=== PATIENT | male | born 1950 | race Asian ===

== ENCOUNTER 2017-03-09 13:40 | Emergency (ER) | payer OTHER, MEDICARE ==
[2017-03-09] MEDS: IV NORMAL SALINE 1000ML BAG 1,000 ML IV (15:04)
[2017-03-09 15:07] LABS: ADD MAN DIFF? NO
[2017-03-09 15:11] LABS: BASO % 0 % (0-3); EOS % 3 % (0-3); HEMATOCRIT 46.3 % (39.0-53.0); HEMOGLOBIN 15.5 g/dL (13.0-17.5); LYMPH # 1.2 x10^3/uL (1.0-4.8); LYMPH % 18 % (24-48); MEAN CORPUSCULAR HEMOGLOBIN 31 pg (25-35); MEAN CORPUSCULAR HGB CONC 34 g/dL (31-37); MEAN CORPUSCULAR VOLUME 93 fL (79-100); MONO % 7 % (0-9); NEUT % 71 % (31-73); PLATELET COUNT 188 x10^3/uL (140-400); RED BLOOD COUNT 4.98 x10^6/uL (4.30-5.70); RED CELL DISTRIBUTION WIDTH 13.1 % (11.5-14.5); WHITE BLOOD COUNT 6.8 x10^3/uL (4.0-11.0)
[2017-03-09 15:23] LABS: ANION GAP 10 (6-14); BLOOD UREA NITROGEN 18 mg/dL (8-26); BUN/CREATININE RATIO 18 (6-20); CALCIUM 8.6 mg/dL (8.5-10.1); CARBON DIOXIDE 28 mmol/L (21-32); CHLORIDE 104 mmol/L (98-107); GFR 74.8; GLUCOSE 100 mg/dL (70-99); INR 0.9 (0.8-1.1); PARTIAL THROMBOPLASTIN TIME 33 SEC (24-38); POTASSIUM 3.5 mmol/L (3.5-5.1); PROTHROMBIN TIME PATIENT 11.2 SEC (11.7-14.0); SODIUM 142 mmol/L (136-145)
[2017-03-09 15:29] LABS: ALK PHOS 70 U/L (46-116); ALT (SGPT) 30 U/L (16-63); AST (SGOT) 27 U/L (15-37); TOTAL BILIRUBIN 0.6 mg/dL (0.2-1.0); TOTAL PROTEIN 7.9 g/dL (6.4-8.2)
[2017-03-09] MEDS ORDERED: CONTRAST GIVEN MC (15:30)
[2017-03-09] MEDS: IOHEXOL 300 MG/ML 100ML VIAL. IV (15:38)
== END 2017-03-09 17:22 | disposition home or self-care (01) ==
LOC: ER 13:40
DX: K92.1 Melena (principal); K52.9 Noninfective gastroenteritis and colitis, unspecified; E78.00 Pure hypercholesterolemia, unspecified; Z79.82 Long term (current) use of aspirin
CPT/HCPCS: 36415; 74177; 80053; 83690; 85025; 85610; 85730; 96360; 96361; 99285-25; J7030; Q9967

== ENCOUNTER 2018-01-09 10:24 | Inpatient (IN) | payer OTHER ==
[~2018-01-09] VITALS: Ht 167.6 cm; Wt 64.4 kg
[~2018-01-09 10:24] MED LIST: CIPR500T94 PO; HYDR-971 PO; METR250T11 PO; OMEG1CAP38 PO; ONDA4TAB12 PO
[2018-01-09] MEDS ORDERED: ASPIRIN 325 MG TABLET PO ONE (11:00)
--- NOTE | 2018-01-09 11:10 | PHYS DOC ---
Past Medical History Past Medical History: High Cholesterol Past Surgical History: No Surgical History Alcohol Use: Occasionally Drug Use: None Adult General Chief Complaint Chief Complaint: CHEST PAIN HPI HPI Patient is a 67 year old male with history of high cholesterol who presents today with 7 out of 10 cramping left-sided chest pain intermittent in nature and nonradiating worse on deep breaths that began 3 weeks ago. Patient denies taking anything to relieve his pain. He states he sometimes gets short of air on exertion. PCP Dr. Cordero Review of Systems Review of Systems Constitutional: Denies fever or chills [] Eyes: Denies change in visual acuity, redness, or eye pain [] HENT: Denies nasal congestion or sore throat [] Respiratory: Denies cough or shortness of breath [] Cardiovascular: Reports left-sided chest pain GI: Denies abdominal pain, nausea, vomiting, bloody stools or diarrhea [] : Denies dysuria or hematuria [] Musculoskeletal: Denies back pain or joint pain [] Integument: Denies rash or skin lesions [] Neurologic: Denies headache, focal weakness or sensory changes [] All other systems were reviewed and found to be within normal limits, except as documented in this note. Current Medications Current Medications Current Medications Medications (Trade) Dose Ordered Sig/Mary Start Time Stop Time Status Last Admin Dose Admin Acetaminophen (Tylenol) 650 mg PRN Q4HRS PRN 01/09/18 15:30 01/10/18 15:29 Aspirin (Douglas Aspirin) 325 mg 1X ONCE 01/09/18 11:00 01/09/18 11:01 DC 01/09/18 14:50 325 MG Morphine Sulfate (Morphine Sulfate) 4 mg PRN Q2HR PRN 01/09/18 15:30 01/10/18 15:29 Nitroglycerin (Nitrostat) 0.4 mg PRN Q5MIN PRN 01/09/18 15:30 01/10/18 15:29 Ondansetron HCl (Zofran) 4 mg PRN Q8HRS PRN 01/09/18 15:30 01/10/18 15:29 Allergies Allergies Allergies Coded Allergies Type Severity Reaction Last Updated Verified No Known Drug Allergies 02/13/13 No Physical Exam Physical Exam Constitutional: Well developed, well nourished, no acute distress, non-toxic appearance. [] HENT: Normocephalic, atraumatic, bilateral external ears normal, oropharynx moist, no oral exudates, nose normal. [] Eyes: PERRLA, EOMI, conjunctiva normal, no discharge. [] Neck: Normal range of motion, no tenderness, supple, no stridor. [] Cardiovascular:Heart rate regular rhythm, no murmur [] Lungs & Thorax: Bilateral breath sounds clear to auscultation [] Abdomen: Bowel sounds normal, soft, no tenderness, no masses, no pulsatile masses. [] Skin: Warm, dry, no erythema, no rash. [] Back: No tenderness, no CVA tenderness. [] Extremities: No tenderness, no cyanosis, no clubbing, ROM intact, no edema. [] Neurologic: Alert and oriented X 3, normal motor function, normal sensory function, no focal deficits noted. [] Psychologic: Affect normal, judgement normal, mood normal. [] Current Patient Data Vital Signs Vital Signs Date Time Temp Pulse Resp B/P (MAP) Pulse Ox O2 Delivery O2 Flow Rate FiO2 01/09/18 10:39 97.7 69 18 156/74 (101) 99 Room Air 97.7 Lab Values Laboratory Tests Test 01/09/18 13:50 01/09/18 13:55 Urine Collection Type Clean catch Urine Color Yellow Urine Clarity Clear Urine pH 7.5 Urine Specific [place] 1.010 Urine Protein Negative mg/dL (NEG-TRACE) Urine Glucose (UA) Negative mg/dL (NEG) Urine Ketones (Stick) Negative mg/dL (NEG) Urine Blood Negative (NEG) Urine Nitrite Negative (NEG) Urine Bilirubin Negative (NEG) Urine Urobilinogen Dipstick 0.2 mg/dL (0.2 mg/dL) Urine Leukocyte Esterase Negative (NEG) Urine RBC 0 /HPF (0-2) Urine WBC 0 /HPF (0-4) Urine Bacteria 0 /HPF (0-FEW) Urine Opiates Screen Neg (NEG) Urine Methadone Screen Neg (NEG) Urine Barbiturates Neg (NEG) Urine Phencyclidine Screen Neg (NEG) Urine Amphetamine/Methamphetamine Neg (NEG) Urine Benzodiazepines Screen Neg (NEG) Urine Cocaine Screen Neg (NEG) Urine Cannabinoids Screen Neg (NEG) Urine Ethyl Alcohol Neg (NEG) White Blood Count 4.2 x10^3/uL (4.0-11.0) Red Blood Count 4.71 x10^6/uL (4.30-5.70) Hemoglobin 15.1 g/dL (13.0-17.5) Hematocrit 43.6 % (39.0-53.0) Mean Corpuscular Volume 93 fL (79-100) Mean Corpuscular Hemoglobin 32 pg (25-35) Mean Corpuscular Hemoglobin Concent 35 g/dL (31-37) Red Cell Distribution Width 12.8 % (11.5-14.5) Platelet Count 183 x10^3/uL (140-400) Neutrophils (%) (Auto) 61 % (31-73) Lymphocytes (%) (Auto) 26 % (24-48) Monocytes (%) (Auto) 9 % (0-9) Eosinophils (%) (Auto) 4 % (0-3) H Basophils (%) (Auto) 1 % (0-3) Neutrophils # (Auto) 2.6 x10^3uL (1.8-7.7) Lymphocytes # (Auto) 1.1 x10^3/uL (1.0-4.8) Monocytes # (Auto) 0.4 x10^3/uL (0.0-1.1) Eosinophils # (Auto) 0.2 x10^3/uL (0.0-0.7) Basophils # (Auto) 0.0 x10^3/uL (0.0-0.2) D-Dimer (Rozina) < 0.27 ug/mlFEU Sodium Level 143 mmol/L (136-145) Potassium Level 3.7 mmol/L (3.5-5.1) Chloride Level 104 mmol/L (98-107) Carbon Dioxide Level 33 mmol/L (21-32) H Anion Gap 6 (6-14) Blood Urea Nitrogen 16 mg/dL (8-26) Creatinine 1.0 mg/dL (0.7-1.3) Estimated GFR (Cockcroft-Gault) 74.5 BUN/Creatinine Ratio 16 (6-20) Glucose Level 98 mg/dL (70-99) Calcium Level 9.0 mg/dL (8.5-10.1) Magnesium Level 2.4 mg/dL (1.8-2.4) Total Bilirubin 0.5 mg/dL (0.2-1.0) Aspartate Amino Transferase (AST) 29 U/L (15-37) Alanine Aminotransferase (ALT) 29 U/L (16-63) Alkaline Phosphatase 60 U/L (46-116) Troponin I Quantitative < 0.017 ng/mL (0.000-0.055) HR-Byq-V-Type Natriuretic Peptide 33 pg/mL (0-124) Total Protein 7.6 g/dL (6.4-8.2) Albumin 3.7 g/dL (3.4-5.0) Albumin/Globulin Ratio 0.9 (1.0-1.7) L Thyroid Stimulating Hormone (TSH) 1.865 uIU/mL (0.358-3.74) Laboratory Tests 01/09/18 13:55 Laboratory Tests 01/09/18 13:55 EKG EKG [] Interpretation Time: 10:[address] He sinus rhythm heart rate 64 no STEMI Radiology/Procedures Radiology/Procedures []PROCEDURE: PORTABLE CHEST 1V PORTABLE CHEST 1V History: chest pain Comparison: February 13, 2013 Findings: Single view of the chest is submitted. There is no infiltrate, pneumothorax, or effusion. The pericardial cardiac silhouette is within normal limits in size. Impression: 1. There is no evidence of acute cardiopulmonary disease. Electronically signed by: Sue Haley MD (01/09/2018 12:01 PM) [id number] DICTATED and SIGNED BY: SUE HALEY MD DATE: 01/09/18 1200 Course & Med Decision Making Course & Med Decision Making Pertinent Labs and Imaging studies reviewed. (See chart for details) This is a 67-year-old male patient presented to the ED today with left-sided chest pain for 3 weeks. Patient also complaining of intermittent episodes of shortness of breath. Patient's labs, EKG, troponin and d-dimer were negative for any acute findings. Chest x-ray is negative. Consulted with Logan LLANOS for dye weigher helper who will follow-up with patient. Consulted with Dr. Chua who accepted patient for admission. Dragon Disclaimer Dragon Disclaimer This electronic medical record was generated, in whole or in part, using a voice recognition dictation system. Departure Departure Impression: Primary Impression: Chest pain Disposition: ADMITTED INPATIENT Condition: STABLE Referrals: JESSICA CORDERO MD (PCP) Problem Qualifiers Primary Impression: Chest pain Chest pain type: unspecified Qualified Codes: R07.9 - Chest pain, unspecified AURELIOMANPREET SANCHEZ METAL BALER Jan 09, 2018 11:10
--- NOTE | 2018-01-09 11:13 | EKG ---
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
--- NOTE | 2018-01-09 12:05 | RAD ---
PORTABLE CHEST 1V History: chest pain Comparison: February 13, 2013 Findings: Single view of the chest is submitted. There is no infiltrate, pneumothorax, or effusion. The pericardial cardiac silhouette is within normal limits in size. Impression: 1. There is no evidence of acute cardiopulmonary disease. Electronically signed by: Ken David MD (01/09/2018 12:01 PM) [id number]
[2018-01-09 14:04] LABS: BASO % 1 % (0-3); EOS # 0.2 x10^3/uL (0.0-0.7); EOS % 4 % (0-3); HEMATOCRIT 43.6 % (39.0-53.0); HEMOGLOBIN 15.1 g/dL (13.0-17.5); LYMPH # 1.1 x10^3/uL (1.0-4.8); LYMPH % 26 % (24-48); MEAN CORPUSCULAR HEMOGLOBIN 32 pg (25-35); MEAN CORPUSCULAR HGB CONC 35 g/dL (31-37); MEAN CORPUSCULAR VOLUME 93 fL (79-100); MONO # 0.4 x10^3/uL (0.0-1.1); MONO % 9 % (0-9); NEUT # 2.6 x10^3uL (1.8-7.7); NEUT % 61 % (31-73); PLATELET COUNT 183 x10^3/uL (140-400); RED BLOOD COUNT 4.71 x10^6/uL (4.30-5.70); RED CELL DISTRIBUTION WIDTH 12.8 % (11.5-14.5); WHITE BLOOD COUNT 4.2 x10^3/uL (4.0-11.0)
[2018-01-09 14:14] LABS: BILIRUBIN,URINE NEGATIVE (NEG); CLARITY,URINE CLEAR; COLOR,URINE YELLOW; NITRITE,URINE NEGATIVE (NEG); PH,URINE 7.5; PROTEIN,URINE NEGATIVE (NEG-TRACE); UROBILINOGEN,URINE 0.2 mg/dL (0.2 mg/dL)
[2018-01-09 14:25] LABS: BARBITURATES NEG (NEG); BENZODIAZEPINES NEG (NEG); CANNABINOIDS NEG (NEG); COCAINE NEG (NEG); METHADONE NEG (NEG); OPIATES NEG (NEG); PHENCYCLIDINE NEG (NEG)
[2018-01-09 14:25] LABS: GFR 74.5; POTASSIUM 3.7 mmol/L (3.5-5.1)
[2018-01-09 14:26] LABS: AMPHETAMINE/METHAMPHETAMINE NEG (NEG); BACTERIA,URINE 0 /HPF (0-FEW); RBC,URINE 0 /HPF (0-2); WBC,URINE 0 /HPF (0-4)
[2018-01-09 14:29] LABS: ALBUMIN 3.7 g/dL (3.4-5.0); ALBUMIN/GLOBULIN RATIO 0.9 (1.0-1.7); MAGNESIUM 2.4 mg/dL (1.8-2.4); TOTAL BILIRUBIN 0.5 mg/dL (0.2-1.0); TOTAL PROTEIN 7.6 g/dL (6.4-8.2)
[2018-01-09] MEDS ORDERED: ONDANSETRON PF 4 MG/2 ML VIAL. IV PRN (15:30)
[2018-01-09] MEDS ORDERED: NITROGLYCERIN SUBLINGUAL 0.4 MG BOTTLE OF 25. SL PRN (15:30)
[2018-01-09] MEDS ORDERED: MORPHINE SULFATE 4 MG/ML VIAL. IV PRN (15:30)
[2018-01-09] MEDS ORDERED: ACETAMINOPHEN 325 MG TABLET. PO PRN (15:30)
--- NOTE | 2018-01-09 15:30 | PDOC1 ---
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 Patient denies taking anything to relieve his pain. He states he sometimes gets short of air on exertion. IN ER Troponin i neg Past Medical History Past Medical History Past Medical History: High Cholesterol Past Surgical History: No Surgical History Alcohol Use: Occasionally Drug Use: None from [place] lived here 34 yrs nonsmoker fhx high cholesterol Cardiovascular: Hyperlipidemia Infectious disease: No pertinent hx ENT: No pertinent hx Renal/: No pertinent hx Family History Family History: Hypertension Family History: Parent Social History Smoke: No ALCOHOL: none Drugs: None Current Medications Current Medications Current Medications Aspirin (Douglas Aspirin) 325 mg 1X ONCE PO Last administered on 01/09/18at 14: 50; Start 01/09/18 at 11:00; Stop 01/09/18 at 11:01; Status DC Ondansetron HCl (Zofran) 4 mg PRN Q8HRS PRN IV NAUSEA/VOMITING; Start at 15:30; Stop 01/10/18 at 15:29 Morphine Sulfate (Morphine Sulfate) 4 mg PRN Q2HR PRN IV PAIN; Start 01/09/18 at 15:30; Stop 01/10/18 at 15:29 Acetaminophen (Tylenol) 650 mg PRN Q4HRS PRN PO FEVER; Start 01/09/18 at 15:30 ; Stop 01/10/18 at 15:29 Nitroglycerin (Nitrostat) 0.4 mg PRN Q5MIN PRN SL CHEST PAIN; Start 01/09/18 at 15:30; Stop 01/10/18 at 15:29 Active Scripts Active [place] 5-325 Tablet (Acetaminophen/Hydrocodone Bitart) 1 Each Tablet 1-2 Tab PO Q4-6HRS Ondansetron Odt (Ondansetron) 4 Mg Tab.rapdis 1 Tab PO PRN Q6-8HRS Cipro (Ciprofloxacin Hcl) 500 Mg Tablet 1 Tab PO BID Metronidazole 250 Mg Tablet 1 Tab PO TID Reported [place] 3 Fish Oil Softgel ([place]-3 Fatty Acids/Fish Oil) 1 Each Capsule. 1 Each PO Allergies Allergies: Coded Allergies: No Known Drug Allergies (Unverified , 02/13/13) ROS Review of System Review of Systems Review of Systems Constitutional: Denies fever or chills [] Eyes: Denies change in visual acuity, redness, or eye pain [] HENT: Denies nasal congestion or sore throat [] Respiratory: Denies cough or shortness of breath [] Cardiovascular: Reports left-sided chest pain no radiation GI: Denies abdominal pain, nausea, vomiting, bloody stools or diarrhea [] : Denies dysuria or hematuria [] Musculoskeletal: Denies back pain or joint pain [] Integument: Denies rash or skin lesions [] Neurologic: Denies headache, focal weakness or sensory changes [] 14 pt systems were reviewed and found to be within normal limits, except as documented . General: No: Chills, Night Sweats, Fatigue, Malaise, Appetite, Other Cardiovascular: yes Chest Pain Physical Exam Physical Exam Physical Exam Physical Exam Constitutional: Well developed, well nourished, no acute distress, non-toxic appearance. [] HENT: Normocephalic, atraumatic, bilateral external ears normal, oropharynx moist, no oral exudates, nose normal. [] Eyes: PERRLA, EOMI, conjunctiva normal, no discharge. [] Neck: Normal range of motion, no tenderness, supple, no stridor. [] Cardiovascular:Heart rate regular rhythm, no murmur [] Lungs & Thorax: Bilateral breath sounds clear to auscultation [] Abdomen: Bowel sounds normal, soft, no tenderness, no masses, no pulsatile masses. [] Skin: Warm, dry, no erythema, no rash. [] Back: No tenderness, no CVA tenderness. [] Extremities: No tenderness, no cyanosis, no clubbing, ROM intact, no edema. [] Neurologic: Alert and oriented X 3, normal motor function, normal sensory function, no focal deficits noted. [] Psychologic: Affect normal, judgement normal, mood normal. [] Current Patient Data Neuro: Strength at 5/5 X4 ext, Cranial nerves 3-12 NL Psych/Mental Status: Mental status NL, Mood NL Vitals Vitals Vital Signs Date Time Temp Pulse Resp B/P (MAP) Pulse Ox O2 Delivery O2 Flow Rate FiO2 01/09/18 10:39 97.7 69 18 156/74 (101) 99 Room Air 97.7 Labs Labs Laboratory Tests Test 01/09/18 13:50 01/09/18 13:55 Urine Collection Type Clean catch Urine Color Yellow Urine Clarity Clear Urine pH 7.5 Urine Specific [place] 1.010 Urine Protein Negative mg/dL (NEG-TRACE) Urine Glucose (UA) Negative mg/dL (NEG) Urine Ketones (Stick) Negative mg/dL (NEG) Urine Blood Negative (NEG) Urine Nitrite Negative (NEG) Urine Bilirubin Negative (NEG) Urine Urobilinogen Dipstick 0.2 mg/dL (0.2 mg/dL) Urine Leukocyte Esterase Negative (NEG) Urine RBC 0 /HPF (0-2) Urine WBC 0 /HPF (0-4) Urine Bacteria 0 /HPF (0-FEW) Urine Opiates Screen Neg (NEG) Urine Methadone Screen Neg (NEG) Urine Barbiturates Neg (NEG) Urine Phencyclidine Screen Neg (NEG) Urine Amphetamine/Methamphetamine Neg (NEG) Urine Benzodiazepines Screen Neg (NEG) Urine Cocaine Screen Neg (NEG) Urine Cannabinoids Screen Neg (NEG) Urine Ethyl Alcohol Neg (NEG) White Blood Count 4.2 x10^3/uL (4.0-11.0) Red Blood Count 4.71 x10^6/uL (4.30-5.70) Hemoglobin 15.1 g/dL (13.0-17.5) Hematocrit 43.6 % (39.0-53.0) Mean Corpuscular Volume 93 fL (79-100) Mean Corpuscular Hemoglobin 32 pg (25-35) Mean Corpuscular Hemoglobin Concent 35 g/dL (31-37) Red Cell Distribution Width 12.8 % (11.5-14.5) Platelet Count 183 x10^3/uL (140-400) Neutrophils (%) (Auto) 61 % (31-73) Lymphocytes (%) (Auto) 26 % (24-48) Monocytes (%) (Auto) 9 % (0-9) Eosinophils (%) (Auto) 4 % (0-3) Basophils (%) (Auto) 1 % (0-3) Neutrophils # (Auto) 2.6 x10^3uL (1.8-7.7) Lymphocytes # (Auto) 1.1 x10^3/uL (1.0-4.8) Monocytes # (Auto) 0.4 x10^3/uL (0.0-1.1) Eosinophils # (Auto) 0.2 x10^3/uL (0.0-0.7) Basophils # (Auto) 0.0 x10^3/uL (0.0-0.2) D-Dimer (Rozina) < 0.27 ug/mlFEU Sodium Level 143 mmol/L (136-145) Potassium Level 3.7 mmol/L (3.5-5.1) Chloride Level 104 mmol/L (98-107) Carbon Dioxide Level 33 mmol/L (21-32) Anion Gap 6 (6-14) Blood Urea Nitrogen 16 mg/dL (8-26) Creatinine 1.0 mg/dL (0.7-1.3) Estimated GFR (Cockcroft-Gault) 74.5 BUN/Creatinine Ratio 16 (6-20) Glucose Level 98 mg/dL (70-99) Calcium Level 9.0 mg/dL (8.5-10.1) Magnesium Level 2.4 mg/dL (1.8-2.4) Total Bilirubin 0.5 mg/dL (0.2-1.0) Aspartate Amino Transf (AST/SGOT) 29 U/L (15-37) Alanine Aminotransferase (ALT/SGPT) 29 U/L (16-63) Alkaline Phosphatase 60 U/L (46-116) Troponin I Quantitative < 0.017 ng/mL (0.000-0.055) UL-Bce-P-Type Natriuretic Peptide 33 pg/mL (0-124) Total Protein 7.6 g/dL (6.4-8.2) Albumin 3.7 g/dL (3.4-5.0) Albumin/Globulin Ratio 0.9 (1.0-1.7) Thyroid Stimulating Hormone (TSH) 1.865 uIU/mL (0.358-3.74) Laboratory Tests Test 01/09/18 13:50 01/09/18 13:55 Urine Collection Type Clean catch Urine Color Yellow Urine Clarity Clear Urine pH 7.5 Urine Specific [place] 1.010 Urine Protein Negative mg/dL (NEG-TRACE) Urine Glucose (UA) Negative mg/dL (NEG) Urine Ketones (Stick) Negative mg/dL (NEG) Urine Blood Negative (NEG) Urine Nitrite Negative (NEG) Urine Bilirubin Negative (NEG) Urine Urobilinogen Dipstick 0.2 mg/dL (0.2 mg/dL) Urine Leukocyte Esterase Negative (NEG) Urine RBC 0 /HPF (0-2) Urine WBC 0 /HPF (0-4) Urine Bacteria 0 /HPF (0-FEW) Urine Opiates Screen Neg (NEG) Urine Methadone Screen Neg (NEG) Urine Barbiturates Neg (NEG) Urine Phencyclidine Screen Neg (NEG) Urine Amphetamine/Methamphetamine Neg (NEG) Urine Benzodiazepines Screen Neg (NEG) Urine Cocaine Screen Neg (NEG) Urine Cannabinoids Screen Neg (NEG) Urine Ethyl Alcohol Neg (NEG) White Blood Count 4.2 x10^3/uL (4.0-11.0) Red Blood Count 4.71 x10^6/uL (4.30-5.70) Hemoglobin 15.1 g/dL (13.0-17.5) Hematocrit 43.6 % (39.0-53.0) Mean Corpuscular Volume 93 fL (79-100) Mean Corpuscular Hemoglobin 32 pg (25-35) Mean Corpuscular Hemoglobin Concent 35 g/dL (31-37) Red Cell Distribution Width 12.8 % (11.5-14.5) Platelet Count 183 x10^3/uL (140-400) Neutrophils (%) (Auto) 61 % (31-73) Lymphocytes (%) (Auto) 26 % (24-48) Monocytes (%) (Auto) 9 % (0-9) Eosinophils (%) (Auto) 4 % (0-3) Basophils (%) (Auto) 1 % (0-3) Neutrophils # (Auto) 2.6 x10^3uL (1.8-7.7) Lymphocytes # (Auto) 1.1 x10^3/uL (1.0-4.8) Monocytes # (Auto) 0.4 x10^3/uL (0.0-1.1) Eosinophils # (Auto) 0.2 x10^3/uL (0.0-0.7) Basophils # (Auto) 0.0 x10^3/uL (0.0-0.2) D-Dimer (Rozina) < 0.27 ug/mlFEU Sodium Level 143 mmol/L (136-145) Potassium Level 3.7 mmol/L (3.5-5.1) Chloride Level 104 mmol/L (98-107) Carbon Dioxide Level 33 mmol/L (21-32) Anion Gap 6 (6-14) Blood Urea Nitrogen 16 mg/dL (8-26) Creatinine 1.0 mg/dL (0.7-1.3) Estimated GFR (Cockcroft-Gault) 74.5 BUN/Creatinine Ratio 16 (6-20) Glucose Level 98 mg/dL (70-99) Calcium Level 9.0 mg/dL (8.5-10.1) Magnesium Level 2.4 mg/dL (1.8-2.4) Total Bilirubin 0.5 mg/dL (0.2-1.0) Aspartate Amino Transf (AST/SGOT) 29 U/L (15-37) Alanine Aminotransferase (ALT/SGPT) 29 U/L (16-63) Alkaline Phosphatase 60 U/L (46-116) Troponin I Quantitative < 0.017 ng/mL (0.000-0.055) IN-Bov-O-Type Natriuretic Peptide 33 pg/mL (0-124) Total Protein 7.6 g/dL (6.4-8.2) Albumin 3.7 g/dL (3.4-5.0) Albumin/Globulin Ratio 0.9 (1.0-1.7) Thyroid Stimulating Hormone (TSH) 1.865 uIU/mL (0.358-3.74) VTE Prophylaxis Ordered VTE Prophylaxis Devices: Yes VTE Pharmacological Prophylaxi: Yes Assessment/Plan Assessment/Plan impression 1, chest pain with atypical features, however over age 50 with hyperlipidemia plan 1. tele 2. serial troponin i\ 3. cardiology consult 4. consider stress testing CHERYLE ORDAZ MD Jan 09, 2018 15:30
--- NOTE | 2018-01-09 15:46 | PDOC2 ---
SAVANAH LIU COMMISSARY ASSISTANT 01/09/18 1546: CARDIAC CONSULT DATE OF CONSULT Date of Consult DATE: 01/09/18 TIME: 15:40 REASON FOR CONSULT Reason for Consult: Chest pain REFERRING PHYSICIAN Referring Physician: Pj SOURCE Source: Chart review, Patient HISTORY OF PRESENT ILLNESS HISTORY OF PRESENT ILLNESS This is a pleasant 67 yo male admitted for complains of chest pain. Reports that he has been feeling tired lately. He has been having left side sharp cramping chest pain that is on and off. This hurts more when he takes a deep breath and very brief when it occurs. He has been having left occipital JANE that goes down to his left neck then shoulder. Associated with this is tingling to his fingers and also some dizziness. No nausea or vomiting or SOA. No jaw pain no recent injuries or fall or heavy lifting. To add his left shoulder discomfort is reproducible with palpation. PAST MEDICAL HISTORY Cardiovascular: Hyperlipidemia GI: Other (colitis) PAST SURGICAL HISTORY Past Surgical History: No pertinent history FAMILY HISTORY Family History: Heart Disease (mother) SOCIAL HISTORY Smoke: No ALCOHOL: none Drugs: None Lives: with Family CURRENT MEDICATIONS CURRENT MEDICATIONS Current Medications Medications (Trade) Dose Ordered Sig/Mary Route PRN Reason Start Time Stop Time Status Last Admin Dose Admin Aspirin (Douglas Aspirin) 325 mg 1X ONCE PO 01/09/18 11:00 01/09/18 11:01 DC 01/09/18 14:50 ALLERGIES ALLERGIES: Coded Allergies: No Known Drug Allergies (Unverified , 02/13/13) ROS Review of System 14 point ROS evaluated with pertinent positives noted per HPI PHYSICAL EXAM General: Alert, Oriented X3, Cooperative, No acute distress HEENT: Atraumatic, Mucous membr. moist/pink Lungs: Clear to auscultation, Normal air movement Heart: Regular rate (SR), Normal S1, Normal S2, Other (2/6 systolic murmur to LLS border) Abdomen: Soft, No tenderness Extremities: No cyanosis, No edema Skin: No breakdown, No significant lesion Neuro: Normal speech, Sensation intact Psych/Mental Status: Mental status NL, Mood NL MUSCULOSKELETAL: Osteoarthritic changes both hands VITALS VITALS Vital Signs Date Time Temp Pulse Resp B/P (MAP) Pulse Ox O2 Delivery O2 Flow Rate FiO2 01/09/18 10:39 97.7 69 18 156/74 (101) 99 Room Air 97.7 LABS Lab: Laboratory Tests Test 01/09/18 13:50 01/09/18 13:55 Urine Collection Type Clean catch Urine Color Yellow Urine Clarity Clear Urine pH 7.5 Urine Specific [place] 1.010 Urine Protein Negative mg/dL (NEG-TRACE) Urine Glucose (UA) Negative mg/dL (NEG) Urine Ketones (Stick) Negative mg/dL (NEG) Urine Blood Negative (NEG) Urine Nitrite Negative (NEG) Urine Bilirubin Negative (NEG) Urine Urobilinogen Dipstick 0.2 mg/dL (0.2 mg/dL) Urine Leukocyte Esterase Negative (NEG) Urine RBC 0 /HPF (0-2) Urine WBC 0 /HPF (0-4) Urine Bacteria 0 /HPF (0-FEW) Urine Opiates Screen Neg (NEG) Urine Methadone Screen Neg (NEG) Urine Barbiturates Neg (NEG) Urine Phencyclidine Screen Neg (NEG) Urine Amphetamine/Methamphetamine Neg (NEG) Urine Benzodiazepines Screen Neg (NEG) Urine Cocaine Screen Neg (NEG) Urine Cannabinoids Screen Neg (NEG) Urine Ethyl Alcohol Neg (NEG) White Blood Count 4.2 x10^3/uL (4.0-11.0) Red Blood Count 4.71 x10^6/uL (4.30-5.70) Hemoglobin 15.1 g/dL (13.0-17.5) Hematocrit 43.6 % (39.0-53.0) Mean Corpuscular Volume 93 fL (79-100) Mean Corpuscular Hemoglobin 32 pg (25-35) Mean Corpuscular Hemoglobin Concent 35 g/dL (31-37) Red Cell Distribution Width 12.8 % (11.5-14.5) Platelet Count 183 x10^3/uL (140-400) Neutrophils (%) (Auto) 61 % (31-73) Lymphocytes (%) (Auto) 26 % (24-48) Monocytes (%) (Auto) 9 % (0-9) Eosinophils (%) (Auto) 4 % (0-3) Basophils (%) (Auto) 1 % (0-3) Neutrophils # (Auto) 2.6 x10^3uL (1.8-7.7) Lymphocytes # (Auto) 1.1 x10^3/uL (1.0-4.8) Monocytes # (Auto) 0.4 x10^3/uL (0.0-1.1) Eosinophils # (Auto) 0.2 x10^3/uL (0.0-0.7) Basophils # (Auto) 0.0 x10^3/uL (0.0-0.2) D-Dimer (Rozina) < 0.27 ug/mlFEU Sodium Level 143 mmol/L (136-145) Potassium Level 3.7 mmol/L (3.5-5.1) Chloride Level 104 mmol/L (98-107) Carbon Dioxide Level 33 mmol/L (21-32) Anion Gap 6 (6-14) Blood Urea Nitrogen 16 mg/dL (8-26) Creatinine 1.0 mg/dL (0.7-1.3) Estimated GFR (Cockcroft-Gault) 74.5 BUN/Creatinine Ratio 16 (6-20) Glucose Level 98 mg/dL (70-99) Calcium Level 9.0 mg/dL (8.5-10.1) Magnesium Level 2.4 mg/dL (1.8-2.4) Total Bilirubin 0.5 mg/dL (0.2-1.0) Aspartate Amino Transf (AST/SGOT) 29 U/L (15-37) Alanine Aminotransferase (ALT/SGPT) 29 U/L (16-63) Alkaline Phosphatase 60 U/L (46-116) Troponin I Quantitative < 0.017 ng/mL (0.000-0.055) FJ-Buo-E-Type Natriuretic Peptide 33 pg/mL (0-124) Total Protein 7.6 g/dL (6.4-8.2) Albumin 3.7 g/dL (3.4-5.0) Albumin/Globulin Ratio 0.9 (1.0-1.7) Thyroid Stimulating Hormone (TSH) 1.865 uIU/mL (0.358-3.74) STRESS TEST STRESS TEST Stress echo <Conclusion> Good exercise capacity at 10.1 Mets on Vance protocol. No evidence of stress induced EKG changes. Normal LV function at rest/stress. Low risk study. DATE: 01/25/16 1350 ASSESSMENT/PLAN ASSESSMENT/PLAN 1. Atypical chest pain: initial trop nml. EKG SR with possible RVH, no acute changes by comparison. Suspect MSK 2. HLP 3. Cervical radiculopathy? Recommendations 1. TTE. Trend troponin. lipids. RAMO HERRING MD 01/09/18 2304: CARDIAC CONSULT ASSESSMENT/PLAN ASSESSMENT/PLAN Pt. seen and examined. Agree with above INSURANCE ACCOUNT SPECIALIST note with following comments. Non-cardiac pain. No echo needed. Supportive care. F/u on an outpt basis with any recurrent pain. Thanks. SAVANAH LIU APRN Jan 09, 2018 15:46 RAMO HERRING MD Jan 09, 2018 23:04
[2018-01-09 17:31] VITALS: BP 143/59
[2018-01-09 19:00] VITALS: BP 133/72
[2018-01-09] MEDS ORDERED: ONDANSETRON ODT 4 MG TAB.RAPDIS. PO PRN (22:30)
[2018-01-09] MEDS ORDERED: HYDROcodone/APAP 5/325MG 1 TAB TABLET PO PRN ×2 (22:30)
[2018-01-09 23:00] VITALS: BP 109/55
[2018-01-10 02:09] LABS: BASO % 1 % (0-3); EOS # 0.2 x10^3/uL (0.0-0.7); EOS % 4 % (0-3); HEMATOCRIT 41.8 % (39.0-53.0); HEMOGLOBIN 14.5 g/dL (13.0-17.5); LYMPH # 1.4 x10^3/uL (1.0-4.8); LYMPH % 29 % (24-48); MEAN CORPUSCULAR HEMOGLOBIN 32 pg (25-35); MEAN CORPUSCULAR HGB CONC 35 g/dL (31-37); MEAN CORPUSCULAR VOLUME 93 fL (79-100); MONO # 0.4 x10^3/uL (0.0-1.1); MONO % 8 % (0-9); NEUT # 2.9 x10^3uL (1.8-7.7); NEUT % 58 % (31-73); PLATELET COUNT 179 x10^3/uL (140-400); RED BLOOD COUNT 4.51 x10^6/uL (4.30-5.70); RED CELL DISTRIBUTION WIDTH 12.9 % (11.5-14.5)
[2018-01-10 02:28] LABS: CALCIUM 8.7 mg/dL (8.5-10.1); CREATININE 1.2 mg/dL (0.7-1.3); GFR 60.4; POTASSIUM 3.6 mmol/L (3.5-5.1)
[2018-01-10 02:31] LABS: CHOLESTEROL/HDL RATIO 3.2
[2018-01-10 03:00] VITALS: BP 118/72
[2018-01-10 07:00] VITALS: BP 117/67
[2018-01-10] MEDS ORDERED: METRONIDAZOLE PO SCH (09:00)
[2018-01-10] MEDS ORDERED: OMEGA-3 FATTY ACIDS/FISH OIL 1,000 MG CAPSULE. PO SCH (09:00)
[2018-01-10] MEDS ORDERED: NON FORMULARY ITEM (Ciprofloxacin Hcl (Cipro) 1 TAB) PO SCH (09:00)
--- NOTE | 2018-01-10 09:00 | EKG ---
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
[2018-01-10 11:00] VITALS: BP 121/54
--- NOTE | 2018-01-10 12:06 | CARD ---
MR#: [id number] Date of Study: 01/10/2018 Ordering Physician: SAVANAH LIU, Referring Physician: CHERYLE ORDAZ, Tech: Neeta Herzog APPROVED REPORT EXAM: Two-dimensional and M-mode echocardiogram with Doppler and color Doppler. Other Information Quality : GoodHR: 63bpm INDICATION Chest Pain 2D DIMENSIONS RVDd2.2 (2.9-3.5cm)Left Atrium(2D)3.6 (1.6-4.0cm) IVSd1.2 (0.7-1.1cm)Aortic Root(2D)2.2 (2.0-3.7cm) LVDd4.3 (3.9-5.9cm)PWd1.1 (0.7-1.1cm) LVDs2.8 (2.5-4.0cm)FS (%) 34.5 % SV53.8 mlLVEF(%)63.9 (>50%) Aortic Valve AoV Peak [place].133.6cm/sAoV VTI26.9cm AO Peak GR.7.1mmHgLVOT Peak [place].122.5cm/s LVOT VTI 25.96cmAO Mean GR.4mmHg Mitral Valve MV E Bjbejflu48.3cm/sMV DECEL [id number] MV A Paojnzij28.0cm/sMV TLO99yx E/A Ratio1.1MVA (PHT)3.66cm2 TDI E/Lateral E'7.2E/Medial E'9.1 Pulmonary Valve PV Peak Lppyzjzl96.8cm/sPV Peak Grad.4mmHg Tricuspid Valve TR P. Rrbqarru589xs/sRAP JYMTBQAK0mhSb TR Peak Gr.98vdEpVLXL68lqDn Pulmonary Vein S1 Pwxhcunj10.8cm/sD2 Zisnwmbm77.0cm/s PVa [id number] LEFT VENTRICLE The left ventricle is normal size. There is borderline concentric left ventricular hypertrophy. The l eft ventricular systolic function is normal and the ejection fraction is within normal range. The Eje ction Fraction is 50-55%. There is normal LV segmental wall motion. Transmitral Doppler flow pattern is normal for age. RIGHT VENTRICLE The right ventricle is normal size. There is normal right ventricular wall thickness. The right ventr icular systolic function is normal. ATRIA The left atrium size is normal. The right atrium size is normal. The interatrial septum is intact wit h no evidence for an atrial septal defect or patent foramen ovale as noted on 2-D or Doppler imaging. AORTIC VALVE The aortic valve is normal in structure and function. Doppler and Color Flow revealed trace aortic re gurgitation. There is no significant aortic valvular stenosis. MITRAL VALVE The mitral valve is normal in structure and function. There is no mitral valve stenosis. Doppler and Color-flow revealed trace mitral regurgitation. TRICUSPID VALVE The tricuspid valve is normal in structure and function. Doppler and Color Flow revealed trace tricus pid regurgitation. There is no tricuspid valve stenosis. PULMONIC VALVE The pulmonic valve is not well visualized. Doppler and Color Flow revealed trace pulmonic valvular re gurgitation. There is no pulmonic valvular stenosis. GREAT VESSELS The aortic root is normal in size. Normal pulmonary venous flow (Doppler). The IVC is normal in size and collapses >50% with inspiration. PERICARDIAL EFFUSION There is no evidence of significant pericardial effusion. Critical Notification Critical Value: No <Conclusion> The left ventricular systolic function is normal and the ejection fraction is within normal range. Th e Ejection Fraction is 50-55%. There is normal LV segmental wall motion. Signed by : Johnathon Knott, Electronically Approved : 01/10/2018 12:05:46
--- NOTE | 2018-01-10 14:13 | PDOC ---
PROGRESS NOTES History of Present Illness History of Present Illness Assessment/Plan Assessment/Plan impression 1, chest pain with atypical features, however over age 50 with hyperlipidemia plan 1. tele 2. serial troponin i\ 3. cardiology consult 4. consider stress testing OUT PT, ECHO OK Vitals Vitals Vital Signs Date Time Temp Pulse Resp B/P (MAP) Pulse Ox O2 Delivery O2 Flow Rate FiO2 01/10/18 11:00 97.5 60 16 121/54 (76) 97 Room Air 97.5 Physical Exam General: Alert, Oriented X3, Cooperative, No acute distress Heart: Regular rate (SR), Normal S1, Normal S2, Other (2/6 systolic murmur to LLS border) Lungs: Clear Abdomen: Normal bowel sounds, Soft, No tenderness Extremities: No clubbing, No cyanosis, No edema Skin: No breakdown, No significant lesion Labs LABS Laboratory Tests Test 01/09/18 20:15 01/10/18 01:50 Troponin I Quantitative < 0.017 ng/mL (0.000-0.055) < 0.017 ng/mL (0.000-0.055) White Blood Count 5.0 x10^3/uL (4.0-11.0) Red Blood Count 4.51 x10^6/uL (4.30-5.70) Hemoglobin 14.5 g/dL (13.0-17.5) Hematocrit 41.8 % (39.0-53.0) Mean Corpuscular Volume 93 fL (79-100) Mean Corpuscular Hemoglobin 32 pg (25-35) Mean Corpuscular Hemoglobin Concent 35 g/dL (31-37) Red Cell Distribution Width 12.9 % (11.5-14.5) Platelet Count 179 x10^3/uL (140-400) Neutrophils (%) (Auto) 58 % (31-73) Lymphocytes (%) (Auto) 29 % (24-48) Monocytes (%) (Auto) 8 % (0-9) Eosinophils (%) (Auto) 4 % (0-3) Basophils (%) (Auto) 1 % (0-3) Neutrophils # (Auto) 2.9 x10^3uL (1.8-7.7) Lymphocytes # (Auto) 1.4 x10^3/uL (1.0-4.8) Monocytes # (Auto) 0.4 x10^3/uL (0.0-1.1) Eosinophils # (Auto) 0.2 x10^3/uL (0.0-0.7) Basophils # (Auto) 0.0 x10^3/uL (0.0-0.2) Sodium Level 144 mmol/L (136-145) Potassium Level 3.6 mmol/L (3.5-5.1) Chloride Level 106 mmol/L (98-107) Carbon Dioxide Level 30 mmol/L (21-32) Anion Gap 8 (6-14) Blood Urea Nitrogen 20 mg/dL (8-26) Creatinine 1.2 mg/dL (0.7-1.3) Estimated GFR (Cockcroft-Gault) 60.4 Glucose Level 105 mg/dL (70-99) Calcium Level 8.7 mg/dL (8.5-10.1) Triglycerides Level 162 mg/dL (0-150) Cholesterol Level 151 mg/dL (0-200) LDL Cholesterol, Calculated 72 mg/dL (0-100) VLDL Cholesterol, Calculated 32 mg/dL (0-40) Non-HDL Cholesterol Calculated 104 mg/dL (0-129) HDL Cholesterol 47 mg/dL (40-60) Cholesterol/HDL Ratio 3.2 Comment Review of Relevant I have reviewed the following items guan[place]ito (where applicable) has been applied. Labs Laboratory Tests Test 01/09/18 13:50 01/09/18 13:55 01/09/18 20:15 01/10/18 01:50 Urine Collection Type Clean catch Urine Color Yellow Urine Clarity Clear Urine pH 7.5 Urine Specific [place] 1.010 Urine Protein Negative mg/dL (NEG-TRACE) Urine Glucose (UA) Negative mg/dL (NEG) Urine Ketones (Stick) Negative mg/dL (NEG) Urine Blood Negative (NEG) Urine Nitrite Negative (NEG) Urine Bilirubin Negative (NEG) Urine Urobilinogen Dipstick 0.2 mg/dL (0.2 mg/dL) Urine Leukocyte Esterase Negative (NEG) Urine RBC 0 /HPF (0-2) Urine WBC 0 /HPF (0-4) Urine Bacteria 0 /HPF (0-FEW) Urine Opiates Screen Neg (NEG) Urine Methadone Screen Neg (NEG) Urine Barbiturates Neg (NEG) Urine Phencyclidine Screen Neg (NEG) Urine Amphetamine/Methamphetamine Neg (NEG) Urine Benzodiazepines Screen Neg (NEG) Urine Cocaine Screen Neg (NEG) Urine Cannabinoids Screen Neg (NEG) Urine Ethyl Alcohol Neg (NEG) White Blood Count 4.2 x10^3/uL (4.0-11.0) 5.0 x10^3/uL (4.0-11.0) Red Blood Count 4.71 x10^6/uL (4.30-5.70) 4.51 x10^6/uL (4.30-5.70) Hemoglobin 15.1 g/dL (13.0-17.5) 14.5 g/dL (13.0-17.5) Hematocrit 43.6 % (39.0-53.0) 41.8 % (39.0-53.0) Mean Corpuscular Volume 93 fL (79-100) 93 fL (79-100) Mean Corpuscular Hemoglobin 32 pg (25-35) 32 pg (25-35) Mean Corpuscular Hemoglobin Concent 35 g/dL (31-37) 35 g/dL (31-37) Red Cell Distribution Width 12.8 % (11.5-14.5) 12.9 % (11.5-14.5) Platelet Count 183 x10^3/uL (140-400) 179 x10^3/uL (140-400) Neutrophils (%) (Auto) 61 % (31-73) 58 % (31-73) Lymphocytes (%) (Auto) 26 % (24-48) 29 % (24-48) Monocytes (%) (Auto) 9 % (0-9) 8 % (0-9) Eosinophils (%) (Auto) 4 % (0-3) 4 % (0-3) Basophils (%) (Auto) 1 % (0-3) 1 % (0-3) Neutrophils # (Auto) 2.6 x10^3uL (1.8-7.7) 2.9 x10^3uL (1.8-7.7) Lymphocytes # (Auto) 1.1 x10^3/uL (1.0-4.8) 1.4 x10^3/uL (1.0-4.8) Monocytes # (Auto) 0.4 x10^3/uL (0.0-1.1) 0.4 x10^3/uL (0.0-1.1) Eosinophils # (Auto) 0.2 x10^3/uL (0.0-0.7) 0.2 x10^3/uL (0.0-0.7) Basophils # (Auto) 0.0 x10^3/uL (0.0-0.2) 0.0 x10^3/uL (0.0-0.2) D-Dimer (Rozina) < 0.27 ug/mlFEU Sodium Level 143 mmol/L (136-145) 144 mmol/L (136-145) Potassium Level 3.7 mmol/L (3.5-5.1) 3.6 mmol/L (3.5-5.1) Chloride Level 104 mmol/L (98-107) 106 mmol/L (98-107) Carbon Dioxide Level 33 mmol/L (21-32) 30 mmol/L (21-32) Anion Gap 6 (6-14) 8 (6-14) Blood Urea Nitrogen 16 mg/dL (8-26) 20 mg/dL (8-26) Creatinine 1.0 mg/dL (0.7-1.3) 1.2 mg/dL (0.7-1.3) Estimated GFR (Cockcroft-Gault) 74.5 60.4 BUN/Creatinine Ratio 16 (6-20) Glucose Level 98 mg/dL (70-99) 105 mg/dL (70-99) Calcium Level 9.0 mg/dL (8.5-10.1) 8.7 mg/dL (8.5-10.1) Magnesium Level 2.4 mg/dL (1.8-2.4) Total Bilirubin 0.5 mg/dL (0.2-1.0) Aspartate Amino Transf (AST/SGOT) 29 U/L (15-37) Alanine Aminotransferase (ALT/SGPT) 29 U/L (16-63) Alkaline Phosphatase 60 U/L (46-116) Troponin I Quantitative < 0.017 ng/mL (0.000-0.055) < 0.017 ng/mL (0.000-0.055) < 0.017 ng/mL (0.000-0.055) QM-Elt-R-Type Natriuretic Peptide 33 pg/mL (0-124) Total Protein 7.6 g/dL (6.4-8.2) Albumin 3.7 g/dL (3.4-5.0) Albumin/Globulin Ratio 0.9 (1.0-1.7) Thyroid Stimulating Hormone (TSH) 1.865 uIU/mL (0.358-3.74) Triglycerides Level 162 mg/dL (0-150) Cholesterol Level 151 mg/dL (0-200) LDL Cholesterol, Calculated 72 mg/dL (0-100) VLDL Cholesterol, Calculated 32 mg/dL (0-40) Non-HDL Cholesterol Calculated 104 mg/dL (0-129) HDL Cholesterol 47 mg/dL (40-60) Cholesterol/HDL Ratio 3.2 Laboratory Tests Test 01/09/18 20:15 01/10/18 01:50 Troponin I Quantitative < 0.017 ng/mL (0.000-0.055) < 0.017 ng/mL (0.000-0.055) White Blood Count 5.0 x10^3/uL (4.0-11.0) Red Blood Count 4.51 x10^6/uL (4.30-5.70) Hemoglobin 14.5 g/dL (13.0-17.5) Hematocrit 41.8 % (39.0-53.0) Mean Corpuscular Volume 93 fL (79-100) Mean Corpuscular Hemoglobin 32 pg (25-35) Mean Corpuscular Hemoglobin Concent 35 g/dL (31-37) Red Cell Distribution Width 12.9 % (11.5-14.5) Platelet Count 179 x10^3/uL (140-400) Neutrophils (%) (Auto) 58 % (31-73) Lymphocytes (%) (Auto) 29 % (24-48) Monocytes (%) (Auto) 8 % (0-9) Eosinophils (%) (Auto) 4 % (0-3) Basophils (%) (Auto) 1 % (0-3) Neutrophils # (Auto) 2.9 x10^3uL (1.8-7.7) Lymphocytes # (Auto) 1.4 x10^3/uL (1.0-4.8) Monocytes # (Auto) 0.4 x10^3/uL (0.0-1.1) Eosinophils # (Auto) 0.2 x10^3/uL (0.0-0.7) Basophils # (Auto) 0.0 x10^3/uL (0.0-0.2) Sodium Level 144 mmol/L (136-145) Potassium Level 3.6 mmol/L (3.5-5.1) Chloride Level 106 mmol/L (98-107) Carbon Dioxide Level 30 mmol/L (21-32) Anion Gap 8 (6-14) Blood Urea Nitrogen 20 mg/dL (8-26) Creatinine 1.2 mg/dL (0.7-1.3) Estimated GFR (Cockcroft-Gault) 60.4 Glucose Level 105 mg/dL (70-99) Calcium Level 8.7 mg/dL (8.5-10.1) Triglycerides Level 162 mg/dL (0-150) Cholesterol Level 151 mg/dL (0-200) LDL Cholesterol, Calculated 72 mg/dL (0-100) VLDL Cholesterol, Calculated 32 mg/dL (0-40) Non-HDL Cholesterol Calculated 104 mg/dL (0-129) HDL Cholesterol 47 mg/dL (40-60) Cholesterol/HDL Ratio 3.2 Medications Current Medications Aspirin ([employer] Aspirin) 325 mg 1X ONCE PO Last administered on 01/09/18at 14: 50; Start 01/09/18 at 11:00; Stop 01/09/18 at 11:01; Status DC Ondansetron HCl (Zofran) 4 mg PRN Q8HRS PRN IV NAUSEA/VOMITING; Start at 15:30; Stop 01/10/18 at 15:29 Morphine Sulfate (Morphine Sulfate) 4 mg PRN Q2HR PRN IV PAIN Last administered on 01/10/18at 07:32; Start 01/09/18 at 15:30; Stop 01/10/18 at 15 :29 Acetaminophen (Tylenol) 650 mg PRN Q4HRS PRN PO FEVER; Start 01/09/18 at 15:30 ; Stop 01/10/18 at 15:29 Nitroglycerin (Nitrostat) 0.4 mg PRN Q5MIN PRN SL CHEST PAIN; Start 01/09/18 at 15:30; Stop 01/10/18 at 15:29 Acetaminophen/ Hydrocodone Bitart (Lortab 5/325) 1 tab PRN Q6HRS PRN PO MODERATE PAIN; Start 01/09/18 at 22:30 Ondansetron HCl (Zofran Odt) 4 mg PRN Q8HRS PRN PO NAUSEA 1ST CHOICE; Start at 22:30 Non-Formulary Medication (Ciprofloxacin Hcl (Cipro)) 1 tab BID PO ; Start 01/10 at 09:00; Status UNV Non-Formulary Medication (Metronidazole ) 1 tab TID PO ; Start 01/10/18 at 09: 00; Status UNV Fish Oil (Fish Oil) 1,000 mg DAILY PO ; Start 01/10/18 at 09:00 Acetaminophen/ Hydrocodone Bitart (Lortab 5/325) 2 tab PRN Q6HRS PRN PO SEVERE PAIN; Start 01/09/18 at 22:30 Active Scripts Active [place] 5-325 Tablet (Acetaminophen/Hydrocodone Bitart) 1 Each Tablet 1-2 Tab PO Q4-6HRS Ondansetron Odt (Ondansetron) 4 Mg Tab.rapdis 1 Tab PO PRN Q6-8HRS Cipro (Ciprofloxacin Hcl) 500 Mg Tablet 1 Tab PO BID Metronidazole 250 Mg Tablet 1 Tab PO TID Reported [place] 3 Fish Oil Softgel ([place]-3 Fatty Acids/Fish Oil) 1 Each Capsule.dr 1 Each PO Vitals/I & O Vital Sign - Last 24 Hours 01/09/18 01/09/18 01/09/18 01/09/18 14:40 15:40 16:40 17:31 Temp 98.2 98.2 Pulse 66 58 62 62 Resp 18 18 14 18 B/P (MAP) 121/59 (79) 111/59 (76) 123/58 (79) 143/59 (87) Pulse Ox 96 96 97 98 O2 Delivery Room Air Room Air Room Air Room Air 01/09/18 01/09/18 01/10/18 01/10/18 19:00 23:00 03:00 07:00 Temp 97.7 98.2 97.9 97.8 97.7 98.2 97.9 97.8 Pulse 67 64 67 64 Resp 18 16 18 16 B/P (MAP) 133/72 (92) 109/55 (73) 118/72 (87) 117/67 (84) Pulse Ox 96 95 97 96 01/10/18 01/10/18 01/10/18 07:32 08:18 11:00 Temp 97.5 97.5 Pulse 60 Resp 16 B/P (MAP) 121/54 (76) Pulse Ox 97 97 97 O2 Delivery Room Air Room Air Intake and Output 01/09/18 01/09/18 01/10/18 15:01 23:01 07:01 Output Total 550 ml Balance -550 ml CHERYLE ORDAZ MD Jan 10, 2018 14:13
--- NOTE | 2018-01-10 14:44 | PDOC3 ---
Discharge Summary Date of Admission: Jan 09, 2018 Date of Discharge: Jan 10, 2018 Follow-Up: 1-2 days Admitting Diagnosis comment: History of Present Illness History of Present Illness DISCHARGE DX========= Assessment/Plan impression 1, chest pain with atypical features, however over age 50 with hyperlipidemia plan 1. CVC BED 2. serial troponin i\ OK 3. cardiology consult NOTED 4. consider stress testing OUT PT, ECHO OK Vitals Vitals Vital Signs Date Time Temp Pulse Resp B/P (MAP) Pulse Ox O2 Delivery O2 Flow Rate FiO2 01/10/18 11:00 97.5 60 16 121/54 (76) 97 Room Air 97.5 Physical Exam General: Alert, Oriented X3, Cooperative, No acute distress Heart: Regular rate (SR), Normal S1, Normal S2, Other (2/6 systolic murmur to LLS border) Lungs: Clear Abdomen: Normal bowel sounds, Soft, No tenderness Extremities: No clubbing, No cyanosis, No edema Skin: No breakdown, No significant lesion Labs Brief Hospital Course Mr. Kirkpatrick is a 67 old [sex] who presented with [ CHEST PAIN/GERD] CONDITION AT DISCHARGE: Improved Discharge Medications Current Medications Aspirin ([place] Aspirin) 325 mg 1X ONCE PO Last administered on 01/09/18at 14: 50; Start 01/09/18 at 11:00; Stop 01/09/18 at 11:01; Status DC Ondansetron HCl (Zofran) 4 mg PRN Q8HRS PRN IV NAUSEA/VOMITING; Start at 15:30; Stop 01/10/18 at 15:29 Morphine Sulfate (Morphine Sulfate) 4 mg PRN Q2HR PRN IV PAIN Last administered on 01/10/18at 07:32; Start 01/09/18 at 15:30; Stop 01/10/18 at 15 :29 Acetaminophen (Tylenol) 650 mg PRN Q4HRS PRN PO FEVER; Start 01/09/18 at 15:30 ; Stop 01/10/18 at 15:29 Nitroglycerin (Nitrostat) 0.4 mg PRN Q5MIN PRN SL CHEST PAIN; Start 01/09/18 at 15:30; Stop 01/10/18 at 15:29 Acetaminophen/ Hydrocodone Bitart (Lortab 5/325) 1 tab PRN Q6HRS PRN PO MODERATE PAIN; Start 01/09/18 at 22:30 Ondansetron HCl (Zofran Odt) 4 mg PRN Q8HRS PRN PO NAUSEA 1ST CHOICE; Start at 22:30 Non-Formulary Medication (Ciprofloxacin Hcl (Cipro)) 1 tab BID PO ; Start 01/10 at 09:00; Status UNV Non-Formulary Medication (Metronidazole ) 1 tab TID PO ; Start 01/10/18 at 09: 00; Status UNV Fish Oil (Fish Oil) 1,000 mg DAILY PO ; Start 01/10/18 at 09:00 Acetaminophen/ Hydrocodone Bitart (Lortab 5/325) 2 tab PRN Q6HRS PRN PO SEVERE PAIN; Start 01/09/18 at 22:30 Active Scripts Active [place] 5-325 Tablet (Acetaminophen/Hydrocodone Bitart) 1 Each Tablet 1-2 Tab PO Q4-6HRS Ondansetron Odt (Ondansetron) 4 Mg Tab.rapdis 1 Tab PO PRN Q6-8HRS Cipro (Ciprofloxacin Hcl) 500 Mg Tablet 1 Tab PO BID Metronidazole 250 Mg Tablet 1 Tab PO TID Reported [place] 3 Fish Oil Softgel ([place]-3 Fatty Acids/Fish Oil) 1 Each Capsule.dr 1 Each PO Vital Signs Vital Signs Date Time Temp Pulse Resp B/P (MAP) Pulse Ox O2 Delivery O2 Flow Rate FiO2 01/10/18 11:00 97.5 60 16 121/54 (76) 97 Room Air 97.5 Labs Laboratory Tests Test 01/09/18 13:50 01/09/18 13:55 01/09/18 20:15 01/10/18 01:50 Urine Collection Type Clean catch Urine Color Yellow Urine Clarity Clear Urine pH 7.5 Urine Specific [place] 1.010 Urine Protein Negative mg/dL (NEG-TRACE) Urine Glucose (UA) Negative mg/dL (NEG) Urine Ketones (Stick) Negative mg/dL (NEG) Urine Blood Negative (NEG) Urine Nitrite Negative (NEG) Urine Bilirubin Negative (NEG) Urine Urobilinogen Dipstick 0.2 mg/dL (0.2 mg/dL) Urine Leukocyte Esterase Negative (NEG) Urine RBC 0 /HPF (0-2) Urine WBC 0 /HPF (0-4) Urine Bacteria 0 /HPF (0-FEW) Urine Opiates Screen Neg (NEG) Urine Methadone Screen Neg (NEG) Urine Barbiturates Neg (NEG) Urine Phencyclidine Screen Neg (NEG) Urine Amphetamine/Methamphetamine Neg (NEG) Urine Benzodiazepines Screen Neg (NEG) Urine Cocaine Screen Neg (NEG) Urine Cannabinoids Screen Neg (NEG) Urine Ethyl Alcohol Neg (NEG) White Blood Count 4.2 x10^3/uL (4.0-11.0) 5.0 x10^3/uL (4.0-11.0) Red Blood Count 4.71 x10^6/uL (4.30-5.70) 4.51 x10^6/uL (4.30-5.70) Hemoglobin 15.1 g/dL (13.0-17.5) 14.5 g/dL (13.0-17.5) Hematocrit 43.6 % (39.0-53.0) 41.8 % (39.0-53.0) Mean Corpuscular Volume 93 fL (79-100) 93 fL (79-100) Mean Corpuscular Hemoglobin 32 pg (25-35) 32 pg (25-35) Mean Corpuscular Hemoglobin Concent 35 g/dL (31-37) 35 g/dL (31-37) Red Cell Distribution Width 12.8 % (11.5-14.5) 12.9 % (11.5-14.5) Platelet Count 183 x10^3/uL (140-400) 179 x10^3/uL (140-400) Neutrophils (%) (Auto) 61 % (31-73) 58 % (31-73) Lymphocytes (%) (Auto) 26 % (24-48) 29 % (24-48) Monocytes (%) (Auto) 9 % (0-9) 8 % (0-9) Eosinophils (%) (Auto) 4 % (0-3) 4 % (0-3) Basophils (%) (Auto) 1 % (0-3) 1 % (0-3) Neutrophils # (Auto) 2.6 x10^3uL (1.8-7.7) 2.9 x10^3uL (1.8-7.7) Lymphocytes # (Auto) 1.1 x10^3/uL (1.0-4.8) 1.4 x10^3/uL (1.0-4.8) Monocytes # (Auto) 0.4 x10^3/uL (0.0-1.1) 0.4 x10^3/uL (0.0-1.1) Eosinophils # (Auto) 0.2 x10^3/uL (0.0-0.7) 0.2 x10^3/uL (0.0-0.7) Basophils # (Auto) 0.0 x10^3/uL (0.0-0.2) 0.0 x10^3/uL (0.0-0.2) D-Dimer (Rozina) < 0.27 ug/mlFEU Sodium Level 143 mmol/L (136-145) 144 mmol/L (136-145) Potassium Level 3.7 mmol/L (3.5-5.1) 3.6 mmol/L (3.5-5.1) Chloride Level 104 mmol/L (98-107) 106 mmol/L (98-107) Carbon Dioxide Level 33 mmol/L (21-32) 30 mmol/L (21-32) Anion Gap 6 (6-14) 8 (6-14) Blood Urea Nitrogen 16 mg/dL (8-26) 20 mg/dL (8-26) Creatinine 1.0 mg/dL (0.7-1.3) 1.2 mg/dL (0.7-1.3) Estimated GFR (Cockcroft-Gault) 74.5 60.4 BUN/Creatinine Ratio 16 (6-20) Glucose Level 98 mg/dL (70-99) 105 mg/dL (70-99) Calcium Level 9.0 mg/dL (8.5-10.1) 8.7 mg/dL (8.5-10.1) Magnesium Level 2.4 mg/dL (1.8-2.4) Total Bilirubin 0.5 mg/dL (0.2-1.0) Aspartate Amino Transf (AST/SGOT) 29 U/L (15-37) Alanine Aminotransferase (ALT/SGPT) 29 U/L (16-63) Alkaline Phosphatase 60 U/L (46-116) Troponin I Quantitative < 0.017 ng/mL (0.000-0.055) < 0.017 ng/mL (0.000-0.055) < 0.017 ng/mL (0.000-0.055) TJ-Avg-E-Type Natriuretic Peptide 33 pg/mL (0-124) Total Protein 7.6 g/dL (6.4-8.2) Albumin 3.7 g/dL (3.4-5.0) Albumin/Globulin Ratio 0.9 (1.0-1.7) Thyroid Stimulating Hormone (TSH) 1.865 uIU/mL (0.358-3.74) Triglycerides Level 162 mg/dL (0-150) Cholesterol Level 151 mg/dL (0-200) LDL Cholesterol, Calculated 72 mg/dL (0-100) VLDL Cholesterol, Calculated 32 mg/dL (0-40) Non-HDL Cholesterol Calculated 104 mg/dL (0-129) HDL Cholesterol 47 mg/dL (40-60) Cholesterol/HDL Ratio 3.2 Laboratory Tests Test 01/09/18 20:15 01/10/18 01:50 Troponin I Quantitative < 0.017 ng/mL (0.000-0.055) < 0.017 ng/mL (0.000-0.055) White Blood Count 5.0 x10^3/uL (4.0-11.0) Red Blood Count 4.51 x10^6/uL (4.30-5.70) Hemoglobin 14.5 g/dL (13.0-17.5) Hematocrit 41.8 % (39.0-53.0) Mean Corpuscular Volume 93 fL (79-100) Mean Corpuscular Hemoglobin 32 pg (25-35) Mean Corpuscular Hemoglobin Concent 35 g/dL (31-37) Red Cell Distribution Width 12.9 % (11.5-14.5) Platelet Count 179 x10^3/uL (140-400) Neutrophils (%) (Auto) 58 % (31-73) Lymphocytes (%) (Auto) 29 % (24-48) Monocytes (%) (Auto) 8 % (0-9) Eosinophils (%) (Auto) 4 % (0-3) Basophils (%) (Auto) 1 % (0-3) Neutrophils # (Auto) 2.9 x10^3uL (1.8-7.7) Lymphocytes # (Auto) 1.4 x10^3/uL (1.0-4.8) Monocytes # (Auto) 0.4 x10^3/uL (0.0-1.1) Eosinophils # (Auto) 0.2 x10^3/uL (0.0-0.7) Basophils # (Auto) 0.0 x10^3/uL (0.0-0.2) Sodium Level 144 mmol/L (136-145) Potassium Level 3.6 mmol/L (3.5-5.1) Chloride Level 106 mmol/L (98-107) Carbon Dioxide Level 30 mmol/L (21-32) Anion Gap 8 (6-14) Blood Urea Nitrogen 20 mg/dL (8-26) Creatinine 1.2 mg/dL (0.7-1.3) Estimated GFR (Cockcroft-Gault) 60.4 Glucose Level 105 mg/dL (70-99) Calcium Level 8.7 mg/dL (8.5-10.1) Triglycerides Level 162 mg/dL (0-150) Cholesterol Level 151 mg/dL (0-200) LDL Cholesterol, Calculated 72 mg/dL (0-100) VLDL Cholesterol, Calculated 32 mg/dL (0-40) Non-HDL Cholesterol Calculated 104 mg/dL (0-129) HDL Cholesterol 47 mg/dL (40-60) Cholesterol/HDL Ratio 3.2 Allergies Allergies Coded Allergies Type Severity Reaction Last Updated Verified No Known Drug Allergies 02/13/13 No Disposition/Orders: D/C to Home Patient Instructions D/C PLANNING 30 MIN CHERYLE ORDAZ MD Jan 10, 2018 14:44
[2018-01-10] MEDS ORDERED: PANT20TA2 PO (14:47)
--- NOTE | 2018-01-10 14:50 | DISCH ---
DISCHARGE INSTRUCTIONS Condition on Discharge Condition on Discharge: Stable Activity After Discharge Activity Instructions for Disc: Resume previous activity Exercise Instruction after Dis: Walk 10 min, 3 x per day Diet after Discharge Diet after Discharge: Cardiac Checks after Discharge Checks after discharge: Check blood press - daily Contacting the [facility] after DC Call your doctor for: If your condition worsens Warfarin Follow-Up Warfarin Follow UP: SEE PCP IN 2-3 DAYS CHERYLE ORDAZ MD Jan 10, 2018 14:50
[2018-01-10 15:00] VITALS: BP 141/65
== END 2018-01-10 15:50 | disposition home or self-care (01) | DRG 313 ==
LOC: ER 10:24 → CVICU 14:31
PROVIDERS: ADMIT Family Medicine; ATTEND Family Medicine
DX: R07.89 Other chest pain (principal); K21.9 Gastro-esophageal reflux disease without esophagitis; E78.00 Pure hypercholesterolemia, unspecified; E78.5 Hyperlipidemia, unspecified; Z82.49 Family history of ischemic heart disease and other diseases of the circulatory system
CPT/HCPCS: 36415; 71045; 80048; 80053; 80061; 80307; 81001; 83735; 83880; 84443; 84484; 85025; 85379; 93005; 93306; J2270; 99285-25; G0479

== ENCOUNTER → 2018-08-24 | Outpatient (CLI) | payer MEDICAID, OTHER ==
[~2018-08-24] MED LIST changes: +HYDR-3164 PO; -HYDR-971 PO; +METR-111 PO; -METR250T11 PO; +PANT20TA2 PO
--- NOTE | 2018-08-24 16:45 | KCIC ---
CHEST PA LATERAL History: Cough for one week. COMPARISON: 01/09/2018. Heart size is stable and not enlarged. No evidence of pneumothorax or pleural effusion. Bones appear intact. IMPRESSION: No evidence of consolidating infiltrate. Electronically signed by: Sinan Eagle MD (08/24/2018 4:42 PM) [id number]
== END | disposition home or self-care (01) ==
LOC: KCIC 14:45
PROVIDERS: ATTEND Family Medicine
DX: R05 Cough (principal)
CPT/HCPCS: 71046

== ENCOUNTER 2020-02-16 17:19 | Emergency (ER) | payer MEDICARE, MEDICAID ==
[~2020-02-16] VITALS: Ht 162.6 cm; Wt 81.8 kg
[2020-02-16 18:01] VITALS: BP 137/72
--- NOTE | 2020-02-16 18:45 | PHYS DOC ---
Past Medical History Past Medical History: High Cholesterol (MANPREET BRENNAN APRN) Past Surgical History: No Surgical History (MANPREET BRENNAN APRN) Smoking Status: Never Smoker Alcohol Use: Occasionally Drug Use: None (MANPREET BRENNAN APRN) General Adult EDM: Chief Complaint: COUGH HPI: HPI: Patient is a 69 year old male with history of high cholesterol who presents the ED today complaining of subjective fevers, cough, shortness of breath, symptoms intermittently for 1 week. Also reports generalized chest pain only on coughing. Denies any pain in the ED right now. Patient is [place] Citizen speaking, machine spreader line used (MANPREET BRENNAN APRN) Review of Systems: Review of Systems: Constitutional: Reports subjective fevers Eyes: Denies change in visual acuity. [] HENT: Denies nasal congestion or sore throat. [] Respiratory: Reports cough and shortness of breath Cardiovascular: Reports chest pain GI: Denies abdominal pain, nausea, vomiting, bloody stools or diarrhea. [] : Denies dysuria. [] Musculoskeletal: Denies back pain or joint pain. [] Integument: Denies rash. [] Neurologic: Denies headache, focal weakness or sensory changes. [] Psychiatric: Denies depression or anxiety. [] (MANPREET BRENNAN APRN) Heart Score: HEART Score for Chest Pain: HEART Score for Chest Pain Response (Comments) Value History Slighlty/Non-Suspicious 0 ECG Normal 0 Age > 65 2 Risk Factors 1 or 2 Risk Factors 1 Troponin < Normal Limit 0 Total 3 Risk Factors: Risk Factors: DM, Current or recent (<one month) smoker, HTN, HLP, family history of CAD, obesity. Risk Scores: Score 0 - 3: 2.5% MACE over next 6 weeks - Discharge Home Score 4 - 6: 20.3% MACE over next 6 weeks - Admit for Clinical Observation Score 7 - 10: 72.7% MACE over next 6 weeks - Early Invasive Strategies (MANPREET BRENNAN APRN) Allergies: Allergies: Allergies Coded Allergies Type Severity Reaction Last Updated Verified No Known Drug Allergies 02/13/13 No (MANPREET BRENNAN APRN) Physical Exam: PE: Constitutional: Well developed, well nourished, no acute distress, non-toxic appearance. [] HENT: Normocephalic, atraumatic, bilateral external ears normal, oropharynx moist, no oral exudates, nose normal. [] Eyes: PERRLA, EOMI, conjunctiva normal, no discharge. [] Neck: Normal range of motion, no tenderness, supple, no stridor. [] Cardiovascular:Heart rate regular rhythm, no murmur [] Lungs & Thorax: Cultural branding noted on her chest and back, bilateral breath sounds clear to auscultation [] Abdomen: Bowel sounds normal, soft, no tenderness, no masses, no pulsatile masses. [] Skin: Warm, dry, no erythema, no rash. [] Back: No tenderness, no CVA tenderness. [] Extremities: No tenderness, no cyanosis, no clubbing, ROM intact, no edema. [] Neurologic: Alert and oriented X 3, normal motor function, normal sensory function, no focal deficits noted. [] Psychologic: Affect normal, judgement normal, mood normal. [] (MANPREET BRENNAN APRN) Current Patient Data: Vital Signs: Vital Signs Date Time Temp Pulse Resp B/P (MAP) Pulse Ox O2 Delivery O2 Flow Rate FiO2 02/16/20 18:01 99.4 98 18 137/72 (93) 96 Room Air 99.4 (MANPREET BRENNAN APRN) EKG: EK Interpreted by Dr. Thakkar sinus rhythm HR 95 no STEMI (MANPREET BRENNAN APRN) Radiology/Procedures: Radiology/Procedures: []PROCEDURE: PORTABLE CHEST 1V Exam: Chest one view INDICATION: Fever TECHNIQUE: Frontal view of the chest Comparisons: 08/24/2018 FINDINGS: The cardiomediastinal silhouette and pulmonary vessels are within normal limits. The lung and pleural spaces are clear. IMPRESSION: No acute cardiopulmonary process. Electronically signed by: Ifeoma Casper MD (02/16/2020 7:15 PM) LOCATED WITHIN [facility] DICTATED and SIGNED BY: IFEOMA CASPER MD DATE: 02/16/20 [id number] (MANPREET BRENNAN APRN) Course & Med Decision Making: Course & Med Decision Making Pertinent Labs and Imaging studies reviewed. (See chart for details) This is a 69-year-old male patient presenting to the ED today with Covid type symptoms including fever, cough, chest pain only on coughing, symptoms began a week ago. CBC with a WBC of 3.8 patient was tested for COVID-19, results will be called to him, CMP with no acute findings, chest x-ray interpreted by radiologist is negative for any acute findings. EKG is negative, troponin is normal. Temperature is 99.4. Patient is in no distress. Was discharged home with instructions to quarantine himself. Follow-up with PCP in a week. (MANPREET BRENNAN APRN) Dragon Disclaimer: Dragon Disclaimer: This electronic medical record was generated, in whole or in part, using a voice recognition dictation system. (MANPREET BRENNAN APRN) Departure Departure Impression: Primary Impression: Person under investigation for COVID-19 Additional Impressions: Fever Qualified Codes: R50.9 - Fever, unspecified Cough Disposition: 01 DC HOME SELF CARE/HOMELESS Condition: STABLE Referrals: XUAN CLARK APRN (PCP) follow up with your doctor next week Patient Instructions: Cough, Adult, Fever, Adult Additional Instructions: You were evaluated in the emergency room, you were tested for COVID-19. Please quarantine yourself until you get results from us. Maintain good antigen. Take Tylenol Motrin for fever or pain. Come back to the ED at any point symptoms worsen Scripts Azithromycin (ZITHROMAX) 250 Mg Tablet 1 PKG PO UD, #1 PKG Prov: MANPREET BRENNAN APRN 02/16/20 Prednisone (PREDNISONE) 50 Mg Tablet 1 TAB PO DAILY, #5 TAB Prov: MANPREET BRENNAN APRN 02/16/20 Attending Signature Attending Signature I have reviewed the PA/VIDEO GAME PROGRAMMER's note and plan of care. I was available for consultation as needed during the patient's visit in the emergency department. I agree with the clinical impression, plan, and disposition. (SHANTI THAKKAR DO) MANPREET BRENNAN APRN Feb 16, 2020 18:45 SHANTI THAKKAR DO Feb 17, 2020 01:00
[2020-02-16 19:03] LABS: BASO % 1 % (0-3); EOS # 0.1 x10^3/uL (0.0-0.7); EOS % 2 % (0-3); HEMATOCRIT 41.8 % (39.0-53.0); HEMOGLOBIN 14.4 g/dL (13.0-17.5); LYMPH # 0.8 x10^3/uL (1.0-4.8); LYMPH % 20 % (24-48); MEAN CORPUSCULAR HEMOGLOBIN 32 pg (25-35); MEAN CORPUSCULAR HGB CONC 35 g/dL (31-37); MEAN CORPUSCULAR VOLUME 92 fL (79-100); MONO # 0.5 x10^3/uL (0.0-1.1); MONO % 13 % (0-9); NEUT # 2.5 x10^3/uL (1.8-7.7); NEUT % 65 % (31-73); PLATELET COUNT 139 x10^3/uL (140-400); RED BLOOD COUNT 4.54 x10^6/uL (4.30-5.70); RED CELL DISTRIBUTION WIDTH 13.2 % (11.5-14.5); WHITE BLOOD COUNT 3.8 x10^3/uL (4.0-11.0)
--- NOTE | 2020-02-16 19:18 | RAD ---
Exam: Chest one view INDICATION: Fever TECHNIQUE: Frontal view of the chest Comparisons: 08/24/2018 FINDINGS: The cardiomediastinal silhouette and pulmonary vessels are within normal limits. The lung and pleural spaces are clear. IMPRESSION: No acute cardiopulmonary process. Electronically signed by: Ifeoma Ford MD (02/16/2020 7:15 PM) ARVIND
[2020-02-16 19:20] LABS: CALCIUM 8.8 mg/dL (8.5-10.1); CREATININE 1.1 mg/dL (0.7-1.3); GFR 66.4; POTASSIUM 3.6 mmol/L (3.5-5.1)
[2020-02-16 19:25] LABS: ALBUMIN 3.6 g/dL (3.4-5.0); ALBUMIN/GLOBULIN RATIO 0.9 (1.0-1.7); MAGNESIUM 2.2 mg/dL (1.8-2.4); TOTAL BILIRUBIN 0.3 mg/dL (0.2-1.0); TOTAL PROTEIN 7.5 g/dL (6.4-8.2)
[2020-02-16] MEDS ORDERED: PRED50TA PO (20:49)
[2020-02-16] MEDS ORDERED: AZIT250T PO (20:49)
[2020-02-16] MEDS ORDERED: predniSONE 10 MG TABLET PO ONE (21:30)
[2020-02-16] MEDS ORDERED: ACETAMINOPHEN 500 MG TABLET PO ONE (21:30)
--- NOTE | 2020-02-18 10:54 | EKG ---
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
--- NOTE | 2020-02-19 09:37 | NUR ---
IP: Informed pt of positive COVID test and the need to quarantine for 14 days. Pt verbalized understanding. requested I fax results to Susan Padilla NP so he can get more medicine. Fax sent.
== END 2020-02-16 21:14 | disposition home or self-care (01) ==
LOC: ER 17:19
DX: U07.1 COVID-19 (principal); R50.9 Fever, unspecified; R05 Cough; E78.00 Pure hypercholesterolemia, unspecified
CPT/HCPCS: 36415; 71045; 80053; 83735; 84443; 84484; 85025; 93005; 99285; C9803; U0003

== ENCOUNTER → 2020-03-20 | Outpatient (CLI) | payer MEDICARE, MEDICAID ==
[2020-02-27 11:00] VITALS: BP 124/62
[~2020-03-20] MED LIST changes: +AZIT250T PO; +PRED50TA PO
--- NOTE | 2020-03-20 10:12 | KCIC ---
EXAM: Chest, 2 views. HISTORY: Dry cough. COMPARISON: 02/26/2020 FINDINGS: 2 views of the chest are obtained. There is stable coarse diffuse increased interstitial op acity. There is no consolidation, pleural effusion or pneumothorax. The heart is normal in size. IMPRESSION: Stable coarse diffuse increased interstitial opacity likely due to chronic interstitial l jaclyn disease. The possibility of superimposed interstitial infiltrate is not excluded. Electronically signed by: Deena Turner MD (03/20/2020 10:09 AM) [id number]
== END ==
LOC: KCIC 09:39
PROVIDERS: ATTEND Nurse Practitioner Family
DX: R05 Cough (principal); R07.9 Chest pain, unspecified; R06.02 Shortness of breath
CPT/HCPCS: 71046

== ENCOUNTER → 2020-03-25 | Outpatient (CLI) | payer MEDICARE, MEDICAID ==
[2020-02-27 11:00] VITALS: BP 124/62
--- NOTE | 2020-03-25 17:40 | KCIC ---
PROCEDURE: XR FOOT_RIGHT 3 VIEWS STUDY DATE: 03/25/2020 CLINICAL INDICATION / HISTORY: Reason: RIGHT FOOT PAIN / Spl. Instructions: Right foot pain over 1st MTJ, yrs. / History: . TECHNIQUE: AP, lateral and oblique views of the right foot. COMPARISON: None FINDINGS: No fracture or dislocation is identified. There is however first metatarsophalangeal joint space narrowing and osteophytic spurring consistent with moderate degenerative change. There is overl maribell medial soft tissue swelling. No definite bony erosion or tophus is identified. The bone density is normal. The joint space widths are otherwise maintained, and there are no erosions to suggest an i nflammatory arthropathy. No other soft tissue abnormality is seen. IMPRESSION: First MTP joint degenerative changes with mild bunion formation. Electronically signed by: Bere Young MD (03/25/2020 5:37 PM) [id number]
== END ==
LOC: KCIC 12:25
PROVIDERS: ATTEND Nurse Practitioner Family
DX: M19.071 Primary osteoarthritis, right ankle and foot (principal); M79.89 Other specified soft tissue disorders
CPT/HCPCS: 73630

== ENCOUNTER → 2021-01-13 | Outpatient (CLI) | payer MEDICARE, MEDICAID ==
[2020-02-27 11:00] VITALS: BP 124/62
--- NOTE | 2021-01-13 19:08 | KCIC ---
XR ABDOMEN 1V History: Abdominal pain for 2 days. Comparison: None. Technique: AP view of the abdomen Findings: Bowel gas pattern: Abnormal bowel gas pattern with multiple gas-filled small bowel loops, mildly dist ended in the right midabdomen. Stool is present throughout the ascending colon. Free air: No supine evidence for free air. Abnormal calcifications: None. Bones: Normal. Other: None. Impression: 1. Abnormal bowel gas pattern with multiple gas-filled small bowel loops throughout the abdomen with particular gas distention in the right midabdomen. Findings may represent early obstruction or ileus . Close clinical and radiographic follow-up is recommended. Electronically signed by: Rolf Cooper MD (01/13/2021 7:06 PM) [facility]
== END ==
LOC: KCIC 14:18
PROVIDERS: ATTEND Nurse Practitioner Family
DX: R19.5 Other fecal abnormalities (principal); R10.9 Unspecified abdominal pain
CPT/HCPCS: 74018